=== PATIENT | male | born 1960 | race Caucasian/White ===

== ENCOUNTER → 2016-12-02 | Day surgery (SDC) | payer OTHER ==
[~2016-12-02] VITALS: Ht 182.8 cm; Wt 81.6 kg
[~2016-12-02] MED LIST: ANTIBIOTIC O500 U/GM TP; BACTRIM DS 8001 TA1 PO; CLINDAMYCIN HC300 MG PO; ENBREL50 MG/1 ML SQ; ESOMEPRAZOLE MA40 M1 PO; HYDROCODONE BIT1 T11 PO; LIPITOR20 MG PO; NEXIUM40 MG PO; NORCO 5-325 TA1 EACH PO; PREDNISONE5 MG PO; SERTRALINE HYD100 MG PO; ZOLOFT100 MG PO
--- NOTE | ~2016-12-02 | PROC NOTE ---
[place], [place] PROCEDURE NOTE NAME: ALICIA BROWN V [facility] #: [id number] UNIT #: [id number] ROOM: DOCTOR: CHRISTOPHER CARLTON MD BIRTHDATE: [birth year] DOS: 12/02/2016 PREOPERATIVE DIAGNOSES: History of gastroesophageal reflux disease, history of colonic polyps. POSTOPERATIVE DIAGNOSES: Gastric polyps, normal colon. PROCEDURE: EGD with biopsy x2, colonoscopy. ENDOSCOPIST: Christopher Carlton MD. [employer] INSULATOR: [id number]. ANESTHESIA: MAC. INDICATIONS: This is a 56-year-old gentleman who has a history of previous removal of colonic polyps and history of GERD, who is here for the above-mentioned procedure. The procedure and its complications were explained to the patient in detail. Complications that were discussed included but were not limited to bleeding, colon perforation stomach perforation, and missed lesions. He agreed to proceed. DESCRIPTION OF PROCEDURE: After identifying the patient, the patient was brought to the operating suite and laid in the left lateral position. We decided to proceed with the EGD first. A timeout procedure was called, and Anesthesia team gave the patient some IV sedation, and a bite block was placed. An adult gastroscope was now introduced into the mouth and advanced sequentially into the pharynx, esophagus, stomach and the first 2 parts of the duodenum. There was found to be multiple small intestine polyps, one of which was biopsied piecemeal and sent for histopathological diagnosis. The stomach and the esophagus were within normal limits. There were no obvious areas of bleeding or inflammation or ulceration that was seen. The scope was withdrawn and the colonoscopy was done. Digital rectal exam was done, which was within normal limits. There was no blood on the examining finger, and there were no masses that could be palpated. An adult colonoscope was now introduced into the anal canal and advanced sequentially into the rectum, sigmoid colon, descending colon, transverse colon and ascending colon up to the cecum. The prep was found to be suboptimal in certain areas and saline was used for irrigation in order to suck out the liquid stool. Upon reaching the cecum, the scope was withdrawn. Approximate withdrawal time was 6 minutes and 45 seconds. There was no obvious colonic mucosal lesions that could be identified. There were no polyps that could be identified. The scope was withdrawn, and the patient was taken to the recovery room in a stable fashion. Based on these findings, the patient is recommended to have another colonoscopy in 10 years or earlier if the patient has any new symptoms that pertain to the GI tract. I will discuss this with the patient when he comes to see me in the office in two weeks. I will discuss these findings with the patient's postoperatively. [place], [place] PROCEDURE NOTE NAME: ALICIA BROWN V UNIT #: [id number] ROOM: DOCTOR: CHRISTOPHER CARLTON MD BIRTHDATE: [birth year] Christopher Carlton MD CM:PROCNOTE:PROCEDURE NOTE [id number] CHRISTOPHER CARLTON MD
== END | disposition home or self-care (01) ==
LOC: SDC 11-29 10:15
DX: Z12.11 Encounter for screening for malignant neoplasm of colon (principal); Z86.010 Personal history of colon polyps; K31.7 Polyp of stomach and duodenum; K29.50 Unspecified chronic gastritis without bleeding; K21.9 Gastro-esophageal reflux disease without esophagitis; F32.9 Major depressive disorder, single episode, unspecified; M06.9 Rheumatoid arthritis, unspecified; Z82.49 Family history of ischemic heart disease and other diseases of the circulatory system